=== PATIENT | male | born 1990 | race Caucasian/White ===

== ENCOUNTER → 2021-02-28 18:20 | Emergency (ER) | payer SELFPAY ==
[~2021-02-28 18:20] MED LIST: Boostrix 0.5 ML (Tdap) VIAL ONE; Lidocaine 1% w/Epinephrine 1:100K 20 ML VIAL ONE; Ondansetron ODT 4 MG TAB ONE; Triple Antibiotic Oint 1 GM Packet ONE
== END | disposition home or self-care (01) ==
LOC: CSHERS 18:20
DX: S61.412A Laceration without foreign body of left hand, initial encounter (principal); W26.9XXA Contact with unspecified sharp object(s), initial encounter; Z23 Encounter for immunization
CPT/HCPCS: 12001; 90715; Q0162